=== PATIENT | female | born 1965 | race Caucasian/White ===

== ENCOUNTER → 2020-09-20 16:02 | Outpatient (CLI) | payer OTHER, SELFPAY ==
--- NOTE | ~2020-09-20 | XR_ITS ---
XR ankle RT min 3V DATE: 09/20/2020 16:45 INDICATION: Right ankle pain and swelling following rolling ankle several times TECHNIQUE: 5 views COMPARISON: None FINDINGS: Prominent calcifications are noted at the distal Achilles tendon. Slight plantar calcaneal enthesopathy. Mild ankle soft tissue swelling. No fracture or dislocation of the ankle or disruption of the ankle mortise. No periosteal reaction or bone destruction. IMPRESSION: Distal Achilles tendon calcifications Slight calcaneal enthesopathy Nonspecific ankle swelling Reviewed, dictated and finalized at [facility]
== END ==
PROVIDERS: PCP Family Medicine Adolescent Medicine
DX: M25.571 Pain in right ankle and joints of right foot (principal); M79.89 Other specified soft tissue disorders
CPT/HCPCS: 73610

== ENCOUNTER 2023-09-01 23:40 | Emergency (ER) | payer OTHER, SELFPAY ==
--- NOTE | ~2023-09-01 | CT_ITS ---
CT of the Abdomen and Pelvis: Indication: Abdominal pain Technique: 2.5 mm axial scans were obtained through the abdomen and pelvis following intravenous adm inistration of 100 cc of Omnipaque 350. Dose reduction technique was used on this scan by utilizing a utomated exposure control and iterative reconstruction technique. The dose-length product (DLP) was 1 014.74 mGy-cm. Findings: Scans through the lung bases demonstrate minimal right pleural fluid with mild bibasilar a telectatic change. The liver, spleen, pancreas, adrenals and kidneys are within normal limits. Cholecystectomy clips are present. The common bile is dilated to prior cholecystectomy. No evidence of aortic aneurysm. No ly mphadenopathy. No bowel obstruction or bowel wall thickening. There is no evidence to suggest acute appendicitis. Images through the pelvis were performed. Urinary bladder unremarkable. No adnexal mass seen. No asci marlon. Impression: Minimal right pleural fluid and minimal bibasilar atelectatic change. No significant findings. Reviewed, dictated and finalized at [facility]. [employer] Impression: Minimal right pleural fluid and minimal bibasilar atelectatic change. No significant findings.
[2023-09-01 23:42] VITALS: BP 151/77; PULSE 100; RESP 16; TEMP 37.1; O2SAT 97
[2023-09-02] VITALS (28 sets, daily range): BP systolic 98–162; BP diastolic 59–80; PULSE 78–96; RESP 14–18; O2SAT 87–94
--- NOTE | 2023-09-02 00:29 | ED.GENADULT ---
HPI - General Adult General Chief complaint: Back Pain/Injury <RISHI Randhawa Last Filed: 09/02/23 02:54> Stated complaint: right flank pain <RISHI Randhawa Last Filed: 09/02/23 02:54> Time Seen by Provider: 09/02/23 00:09 <RISHI Randhawa Last Filed: 09/02/23 02:54> Source: patient <RISHI Randhawa Last Filed: 09/02/23 02:54> Mode of arrival: ambulatory <RISHI Randhawa Last Filed: 09/02/23 02:54> Limitations: no limitations <RISHI Randhawa Last Filed: 09/02/23 02:54> History of Present Illness HPI narrative: This is a 58-year-old female who presents to the ED with chief complaint right flank pain beginning earlier this week and worsening today. Reports it has been waxing and waning in severity but seems to be increasing statin or today. Reports the pain is primarily in the does not radiate much. Denies fevers, chills, urinary problems, nausea or problems with bowel movements. Denies any injury to the area. She does state that she has a large dog that she walks and she has to use that side to pull him quite often. <RISHI Randhawa Last Filed: 09/02/23 02:54> Related Data Home medications: Home Medications Medication Instructions Recorded Confirmed lactobacillus combination no.4 3 3,000 mmu cells PO DAILY 12/08/22 12/08/22 billion cell capsule (Probiotic) multivitamin 1 tablet PO DAILY 12/08/22 12/08/22 omega-3 fatty acids 500 mg capsule 500 mg PO DAILY 12/08/22 12/08/22 <RISHI Randhawa Last Filed: 09/02/23 02:54> Allergies/adverse reactions: Allergies Allergy/AdvReac Type Severity Reaction Status Date / Time pseudoephedrine AdvReac Unknown Insomnia Verified 12/08/22 15:21 [From Sudafed] Sulfa (Sulfonamide AdvReac Unknown Chest Pain Verified 12/08/22 15:21 Antibiotics) <Jaleel Crawford PA-C - Last Filed: 09/02/23 02:54> Review of Systems Review of Systems: All systems as dictated in HPI <RISHI Randhawa Last Filed: 09/02/23 02:54> [facility] [place] Family History Family History: Family History (Updated 03/03/22 @ 15:19 by Chanelle Vieyra MA) Father Diabetes mellitus Heart disease Depression Grandparent DVT (deep venous thrombosis) Son Lymphoma Other Colon polyp <Jaleel Crawford PA-C - Last Filed: 09/02/23 02:54> Social History Social History: Social History (Updated 03/03/22 @ 15:20 by Chanelle Vieyra MA) Smoking status: Never smoker Second hand tobacco smoke exposure: No Alcohol intake: current Alcohol use details: rarely Substance use: never Substance use type: does not use Living arrangements: with family Occupation/Education: occupation Gender identity (if verbalized by the patient): Female Sexual Orientation (if Verbalized by the Patient): Straight or Heterosexual Spiritual care concerns: No Agree to blood products: Yes <Jaleel Crawford PA-C - Last Filed: 09/02/23 02:54> Exam Narrative: GENERAL: Well-appearing, well-nourished, and in no acute distress. HEAD: Normocephalic, atraumatic. EYES: PERRLA and EOMI. ENT: Nares clear, no rhinorrhea or epistaxis. Mucous membranes moist. Oropharynx without tonsillar hypertrophy exudate or other lesions. NECK: Supple. No adenopathy or masses. CHEST: No respiratory distress. Clear to auscultation. No wheezes rales or rhonchi. HEART: Regular rate and rhythm. No murmur heard. Normal peripheral pulses. ABDOMEN: Mild right flank tenderness. Negative flank tenderness. Soft, otherwise nontender, nondistended, normal active bowel sounds. MSK: Normal range of motion. No edema. SKIN: Warm, dry, no rash. NEURO: Alert and oriented x3. No focal deficits. PSYCH: Normal mood and affect. <RISHI Randhawa Last Filed: 09/02/23 02:54> Course Vital Signs Vital signs: Vital Signs Temperature 37.1 C 09/01/23 23:42 Pulse Rate 100 09/01/23 23:42
[2023-09-02 00:44] LABS: Add Urine Microscopic? YES; Appearance Urine Clear (Clear); Bacteria Urine None Seen /hpf; Bilirubin Urine Negative (Negative); Blood Urine 1+ (Negative); Color Urine Yellow (Yellow); Glucose Urine UA Negative (Negative); Ketones Urine Trace mg/dL (Negative); Leukocyte Esterase Ur 1+ LEU/UL (Negative); Nitrate Urine Negative (Negative); Non Pathogenic Casts 0-2; Protein Urine Negative (Negative); Specific Grav Ur 1.026 (1.001-1.035); Squamous Epithelial Cell Urine Occasional /hpf (Few); pH Urine 5.5 (5.0-9.0)
[2023-09-02] MEDS: ONDANSETRON INJ 4 MG/2 ML VIAL IV PUSH (01:06)
[2023-09-02] MEDS: MORPHINE SULFATE (*CRX) 4 MG/ML INJ IV PUSH (01:06)
[2023-09-02 01:17] LABS: Basophils Absolute Auto 0.1 K/mm3 (0.0-0.1); Basophils Percent Auto 0.4 % (0.2-1.2); Eosinophils Absolute Auto 0.2 K/mm3 (0-0.3); Eosinophils Percent Auto 1.5 % (0-4.4); Hematocrit 42.7 % (37.0-47.0); Hemoglobin 14.3 g/dL (12.0-15.0); Immature Granulocyte Absolute 0.05 K/mm3 (0.00-0.031); Immature Granulocyte Percent A 0.4 % (0-0.5); Lymphocytes Absolute Auto 1.79 K/mm3 (0.9-3.2); Lymphocytes Percent Auto 12.8 % (18.3-44.2); Mean Corpuscular HGB Conc 33.5 g/dl (32-36); Mean Corpuscular Hemoglobin 30.9 pg (26-34); Mean Corpuscular Volume 92.2 fl (80-100); Mean Platelet Volume 9.7 fl (7.4-10.4); Monocytes Percent Auto 7.4 % (2.6-8.5); Neutrophils Absolute Auto 10.9 K/mm3 (1.3-6.7); Neutrophils Percent Auto 77.5 % (45.5-73.1); Platelet Count Result 312 k/mm3 (150-375); Red Blood Count 4.63 M/mm3 (4.2-5.4)
[2023-09-02 01:32] LABS: Alanine Aminotransferase 29 U/L (6-35); Albumin Level 4.1 g/dL (3.5-5.1); Alkaline Phosphatase 140 U/L (38-126); Anion Gap 5 mmol/L (8-16); Aspartate Amino Transferase 33 U/L (14-36); Bilirubin,Total 0.4 mg/dL (0.2-1.3); Blood Urea Nitrogen 12 mg/dL (7-17); Carbon Dioxide 28 mmol/L (22-30); Chloride 108 mmol/L (98-107); Estimated CRCL calculation 82 ml/min; Estimated Glomerular Filt Rate > 60; Glucose 155 mg/dL (65-110); Potassium 3.9 mmol/L (3.4-5.0); Sodium 141 mmol/L (137-145)
[2023-09-02] MEDS: HYDROmorphone HCL INJ (*CRX) 1 MG/ML SYR IV PUSH (04:08)
== END 2023-09-02 06:11 | disposition home or self-care (01) ==
PROVIDERS: Physician Assistant; Emergency Provider Emergency Medicine; PCP Family Medicine Adolescent Medicine
DX: N39.0 Urinary tract infection, site not specified (principal); R10.9 Unspecified abdominal pain
CPT/HCPCS: 36415; 74177; 80053; 81001; 81025; 85025; 87086; 87088; 96365; 96366; 96375; 99284; J0696; J1170; J2270; J2405; Q9967